=== PATIENT | female | born 1980 | race Caucasian/White ===

== ENCOUNTER 2018-05-13 13:30 | Emergency (ER) | payer SELFPAY ==
--- NOTE | 2018-05-13 14:17 | ER ---
Nurse's Notes [facility] Name: Maye Lamb Age: 37 yrs Sex: Female : 1980 Arrival Date: 05/13/2018 Time: 13:38 Bed 7 Private MD: Diagnosis: Encounter for screening, unspecified Presentation: 05/13 13:42 Presenting complaint: Patient states: pain to mid back, radiating down L flank and L ch leg for about a week since wrestling with kids and helping someone out of a ditch, pain has gotten progressively worse, feels like a sharp burning pain. Transition of care: patient was not received from another setting of care. Onset of symptoms was May 06, 2018. Risk Assessment: Do you want to hurt yourself or someone else? Patient reports no desire to harm self or others. Initial Sepsis Screen: Does the patient meet any 2 criteria? No. Patient's initial sepsis screen is negative. Does the patient have a suspected source of infection? No. Patient's initial sepsis screen is negative. Care prior to arrival: None. 13:42 Method Of Arrival: Ambulatory 13:42 Acuity: DONNA 3 Triage Assessment: 13:45 General: Appears in no apparent distress. uncomfortable, Behavior is calm, cooperative, ch appropriate for age. Pain: Complains of pain in left low back, left mid back, posterior aspect of left lateral abdomen and left leg Pain currently is 10 out of 10 on a pain scale. Respiratory: Airway is patent Respiratory effort is even, unlabored. 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 - Social history:: Smoking status: Patient uses tobacco products, smokes one pack cigarettes per day. Patient uses alcohol, weekly. Patient/guardian denies using street drugs. - Ebola Screening: : Patient negative for fever greater than or equal to 101.5 degrees Fahrenheit, and additional compatible Ebola Virus Disease symptoms Patient denies exposure to infectious person Patient denies travel to an Ebola-affected area in the 21 days before illness onset No symptoms or risks identified at this time. Screenin:47 Abuse screen: Denies threats or abuse. Denies injuries from another. Nutritional screening: No deficits noted. Tuberculosis screening: No symptoms or risk factors identified. Fall Risk None identified. Assessment: 13:47 Reassessment: Patient appears in no apparent distress at this time. No changes from previously documented assessment. 14:25 Reassessment: Patient appears in no apparent distress at this time. Patient and/or family updated on plan of care and expected duration. Pain level reassessed. Patient is alert, oriented x 3, equal unlabored respirations, skin warm/dry/pink. Vital Signs: 13:45 BP 109 / 78; Pulse 74; Resp 18; Temp 98.3; Pulse Ox 99% on R/A; Weight 74.84 kg; Height 5 ft. 4 in. (162.56 cm); Pain 10/10; 13:45 Body Mass Index 28.32 (74.84 kg, 162.56 cm) ED Course: 13:38 Patient arrived in ED. ph 13:42 Mary Beckman, RN is Primary Nurse. 13:43 Triage completed. 13:45 Arm band placed on left wrist. Patient placed in an exam room, on a stretcher, on pulse oximetry. 13:46 Sahil Swain MD is Attending Physician. 13:47 No apparent distress. Resting quietly. 13:47 Patient has correct armband on for positive identification. Placed in gown. Bed in low position. Call light in reach. Side rails up X 1. Adult w/ patient. Pulse ox on. NIBP on. Warm blanket given. 14:25 No apparent distress. Resting quietly. ch 14:25 No provider procedures requiring assistance completed. Patient did not have IV access during this emergency room visit. Administered Medications: No medications were administered Outcome: 14:17 Discharge ordered by . 14:25 Medical screen evaluation completed per provider. Patient declined treatment. ch 14:25 Condition: stable 14:25 Discharge instructions given to patient, Instructed on follow up and referral plans. 14:25 Patient left the ED. Signatures: Mary Beckman, RN RN Cyndi Olivia RN RN ph Sahil Swain MD MD gs
--- NOTE | 2018-05-13 14:17 | EDPHYS ---
Physician Documentation [facility] Name: Maye Lamb Age: 37 yrs Sex: Female : 1980 Arrival Date: 05/13/2018 Time: 13:38 Bed 7 Private MD: ED Physician Sahil Swain HPI: 05/13 14:10 This 37 yrs old Female presents to ER via Ambulatory with unknown complaint. gs 14:10 The patient presents with pain that is acute. The symptoms are located in the low back. gs Onset: The symptoms/episode began/occurred 1 week(s) ago. The pain radiates to the left leg. Associated signs and symptoms: Pertinent negatives: abdominal pain, chest pain, incontinence, numbness, urinary retention, weakness. The problem was sustained when lifting. Modifying factors: the patient symptoms are aggravated by any movement, lifting. Severity of symptoms: At their worst the symptoms were moderate, in the emergency department the symptoms are unchanged. The patient has experienced similar episodes in the past, a few times. 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 - Social history:: Smoking status: Patient uses tobacco products, smokes one pack cigarettes per day. Patient uses alcohol, weekly. Patient/guardian denies using street drugs. - Ebola Screening: : Patient negative for fever greater than or equal to 101.5 degrees Fahrenheit, and additional compatible Ebola Virus Disease symptoms Patient denies exposure to infectious person Patient denies travel to an Ebola-affected area in the 21 days before illness onset No symptoms or risks identified at this time. ROS: 14:10 All other systems are negative. gs Exam: 14:10 Head/Face: Normocephalic, atraumatic. Eyes: Pupils equal round and reactive to light, gs extra-ocular motions intact. Lids and lashes normal. Conjunctiva and sclera are non-icteric and not injected. Cornea within normal limits. Periorbital areas with no swelling, redness, or edema. ENT: Nares patent. No nasal discharge, no septal abnormalities noted. Tympanic membranes are normal and external auditory canals are clear. Oropharynx with no redness, swelling, or masses, exudates, or evidence of obstruction, uvula midline. Mucous membranes moist. Neck: Trachea midline, no thyromegaly or masses palpated, and no cervical lymphadenopathy. Supple, full range of motion without nuchal rigidity, or vertebral point tenderness. No Meningismus. Chest/axilla: Normal chest wall appearance and motion. Nontender with no deformity. No lesions are appreciated. Cardiovascular: Regular rate and rhythm with a normal S1 and S2. No gallops, murmurs, or rubs. Normal PMI, no JVD. No pulse deficits. Respiratory: Lungs have equal breath sounds bilaterally, clear to auscultation and percussion. No rales, rhonchi or wheezes noted. No increased work of breathing, no retractions or nasal flaring. Abdomen/GI: Soft, non-tender, with normal bowel sounds. No distension or tympany. No guarding or rebound. No evidence of tenderness throughout. Skin: Warm, dry with normal turgor. Normal color with no rashes, no lesions, and no evidence of cellulitis. MS/ Extremity: Pulses equal, no cyanosis. Neurovascular intact. Full, normal range of motion. Neuro: Awake and alert, GCS 15, oriented to person, place, time, and situation. Cranial nerves II-XII grossly intact. Motor strength 5/5 in all extremities. Sensory grossly intact. Cerebellar exam normal. Normal gait. 14:10 Constitutional: The patient appears alert, awake. 14:10 Back: pain, that is mild, of the left low back. 14:10 Neuro: Motor: strength is normal, Deep tendon reflexes are normal. Vital Signs: 13:45 BP 109 / 78; Pulse 74; Resp 18; Temp 98.3; Pulse Ox 99% on R/A; Weight 74.84 kg; Height ch 5 ft. 4 in. (162.56 cm); Pain 10/10; 13:45 Body Mass Index 28.32 (74.84 kg, 162.56 cm) MDM: 14:06 Patient medically screened. 14:10 Data reviewed: vital signs, nurses notes. gs Administered Medications: No medications were administered Disposition: 14:10 lumbago with sciatica radicular symptoms. Disposition: 05/13/18 14:17 Discharged to Home. Impression: Encounter for screening, unspecified. - Condition is Stable. - Medication Reconciliation Form, Thank You Letter, Antibiotic Education, Prescription Opioid Use form. - Follow up: Private Physician; When: 2 - 3 days; Reason: Re-evaluation by your physician. Signatures: Mary Beckman RN RN ch Starr, Gregory, MD MD Corrections: (The following items were deleted from the chart) 14:25 14:17 05/13/2018 14:17 Discharged to Home. Impression: Encounter for screening, ch unspecified. Condition is Stable. Forms are Medication Reconciliation Form, Thank You Letter, Antibiotic Education, Prescription Opioid Use. Follow up: Private Physician; When: 2 - 3 days; Reason: Re-evaluation by your physician.
== END 2018-05-13 14:25 | disposition home or self-care (01) ==
LOC: ER 13:30
DX: Z13.9 Encounter for screening, unspecified (principal); F17.210 Nicotine dependence, cigarettes, uncomplicated; Z88.8 Allergy status to other drugs, medicaments and biological substances
CPT/HCPCS: 99283